=== PATIENT | female | born 1930 | race Caucasian/White ===

== ENCOUNTER 2017-08-07 05:59 | Day surgery (SDC) | payer MEDICARE, OTHER ==
[~2017-08-07 05:59] MED LIST: Lidocaine 1%/Sod Bicarbonate in NS 8.4% 1 ML Syringe IV PRN; Sodium Chloride 0.9% 10 ML Syringe FLUSH PRN
[2017-08-07] MEDS ORDERED: Bupivacaine 0.25% 30 ML SDV ONE (06:31)
[2017-08-07] MEDS ORDERED: HYDROmorphone 0.5 MG/0.5 ML Syringe IVPUSH PRN (06:37)
[2017-08-07] MEDS ORDERED: Sennosides 8.6 MG Tab PO PRN (06:37)
[2017-08-07] MEDS ORDERED: Bisacodyl 5 MG Tab PO PRN (06:37)
[2017-08-07] MEDS ORDERED: Magnesium Hydroxide 400 MG/5 ML Susp 30 ML Cup PO PRN (06:37)
[2017-08-07] MEDS ORDERED: Ondansetron 4 MG/2 ML SDV IVPUSH PRN (06:37)
[2017-08-07] MEDS ORDERED: Naloxone 0.4 MG/ML SDV IVPUSH PRN (06:37)
--- NOTE | 2017-08-07 06:58 | PCM.PREANE ---
Preanesthetic Assessment - Anesthesia/Transfusion/Family Hx Anesthesia History: Prior Anesthesia Reaction (nausea) Family History of Anesthesia Reaction: No Transfusion History: No Prior Transfusion(s) - Review of Systems General: No Symptoms Pulmonary: No Symptoms Cardiovascular: No Symptoms Gastrointestinal: No Symptoms Neurological: No Symptoms Other: Reports: Easy Bleeding, Easy Bruising - Physical Assessment NPO Status Date: 08/06/17 NPO Status Time: 00:00 Pulse: 69 O2 Sat by Pulse Oximetry: 98 Respiratory Rate: 16 Blood Pressure: 159/73 Temperature: 36.6 C Height: 1.65 m Weight: 57.1 kg ASA Class: 2 Mental Status: Alert & Oriented x3 Airway Class: Mallampati = 1 Dentition: Reports: Partial Thyro-Mental Finger Breadths: 3 Mouth Opening Finger Breadths: 3 ROM/Head Extension: Full Lungs: Clear to Auscultation, Normal Respiratory Effort Cardiovascular: Regular Rate, Regular Rhythm - Imaging/EKG Impressions: NSR no ischemia PVC's probable LVH - Allergies Allergies/Adverse Reactions: Allergies Allergy/AdvReac Type Severity Reaction Status Date / Time adhesive Allergy Cannot Verified 08/04/17 14:03 Remember atorvastatin Allergy Cannot Verified 08/04/17 14:03 Remember codeine Allergy Rash Verified 08/04/17 14:03 cyclobenzaprine Allergy Confusion Verified 08/04/17 14:03 [From Flexeril] morphine Allergy Cannot Verified 08/04/17 14:03 Remember risedronate sodium Allergy Cannot Verified 08/04/17 14:03 [From Actonel] Remember - Anesthesia Plan Pre-Op Medication Ordered: None - Acknowledgements Anesthesia Type Planned: Spinal Pt an Appropriate Candidate for the Planned Anesthesia: Yes Alternatives and Risks of Anesthesia Discussed w Pt/Guardian: Yes Pt/Guardian Understands and Agrees with Anesthesia Plan: Yes PreAnesthesia Questionnaire HEENT History: Reports: Allergic Rhinitis, Impaired Vision, Other (See Below) Other HEENT History: TMJ, wears glasses, has lower partial Cardiovascular History: Reports: High Cholesterol, Hypertension, Other (See Below) Other Cardiovascular History: varicose veins Respiratory History: Reports: None Gastrointestinal History: Reports: GERD, Hemorrhoids, Other (See Below) Other Gastrointestinal History: elevated LFTs, small bowel obstruction Genitourinary History: Reports: Other (See Below) Other Genitourinary History: left renal cyst 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 OB/BYN History: mastectomy Musculoskeletal History: Reports: Osteoarthritis, Osteoporosis Other Musculoskeletal History: menscus tear right knee Neurological History: Reports: None Psychiatric History: Reports: Depression Endocrine/Metabolic History: Reports: None Hematologic History: Reports: None Oncologic (Cancer) History: Reports: Breast Dermatologic History: Reports: None - Infectious Disease History Infectious Disease History: Reports: Chicken Pox, Measles, Mumps, Shingles - Past Surgical History HEENT Surgical History: Reports: Tonsillectomy Cardiovascular Surgical History: Reports: None Respiratory Surgical History: Reports: None GI Surgical History: Reports: Cholecystectomy, Colonoscopy Female Surgical History: Reports: Hysterectomy, Oophorectomy Male Surgical History: Reports: None Endocrine Surgical History: Reports: None Neurological Surgical History: Reports: None Musculoskeletal Surgical History: Reports: Knee Replacement, Other (See Below) Other Musculoskeletal Surgeries/Procedures:: right total knee replacement Oncologic Surgical History: Reports: Mastectomy Other Oncologic Surgeries/Procedures: Right 1996 Dermatological Surgical History: Reports: None - SUBSTANCE USE Smoking Status *Q: Former Smoker Tobacco Use Within Last Twelve Months: Cigarettes Second Hand Smoke Exposure: No Recreational Drug Use History: No - HOME MEDS Home Medications: Home Meds Aspirin [Halfprin] 81 mg PO DAILY 03/29/15 [History] Lisinopril 40 mg PO DAILY 03/29/15 [History] Triamterene/Hydrochlorothiazid [Triamterene-HCTZ 37.5-25 MG] 1 tab PO DAILY 01/05 [History] Fluticasone Propionate [Flonase] 1 spray NASBOTH BID PRN 08/05/16 [History] Acetaminophen [Tylenol] 650 mg PO Q6H PRN 08/04/17 [History] Denosumab [Prolia] 1 dose SQ ASDIRECTED 08/04/17 [History] Diclofenac Sodium [Voltaren] 1 applic TOP QID 08/04/17 [History] Escitalopram [Lexapro] 5 mg PO DAILY 08/04/17 [History] Tobramycin/Lotepred Etab [Zylet Eye Drops] 1 drop EYEBOTH QID 08/04/17 [History] - CURRENT (IN HOUSE) MEDS Current Meds: Current Medications Aspirin (Ecotrin) 325 mg PO BID STEPHANY Bisacodyl (Dulcolax) 5 mg PO DAILY PRN PRN Reason: Constipation Morphine Sulfate 8 mg/Epinephrine HCl 0.3 mg/Cefuroxime Sodium 750 mg/Ketorolac Tromethamine 30 mg/Sodium Chloride 27.9 ml 0 mg .XX ONETIME ONE Stop: 08/07/17 06:37 Docusate Sodium (Colace) 100 mg PO BID [facility] Famotidine (Pepcid) 20 mg PO Q12H [facility] Hydromorphone HCl (Dilaudid) 0.2 mg IVPUSH Q2H PRN PRN Reason: Breakthrough Pain Lactated Ringer's (Ringers, Lactated) 1,000 mls @ 125 mls/hr IV ASDIRECTED STEPHANY Cefazolin Sodium/Dextrose 2 gm (/ Premix) 50 mls @ 100 mls/hr IV Q8H [facility] Stop: 08/07/17 23:14 Ketorolac Tromethamine (Toradol) 15 mg IVPUSH Q6H PRN PRN Reason: Pain Lidocaine/Sodium Bicarbonate (Buffered Lidocaine 1% In Ns 8.4%) 0.25 ml IV ONETIME PRN PRN Reason: Prior to IV Start Magnesium Hydroxide (Milk Of Magnesia) 30 ml PO BID PRN PRN Reason: Constipation Naloxone HCl (Narcan) 0.1 mg IVPUSH Q5M PRN PRN Reason: Oversedation Ondansetron HCl (Zofran) 4 mg IVPUSH Q6H PRN PRN Reason: Nausea/Vomiting Senna (Senna) 8.6 mg PO BID PRN PRN Reason: Constipation Sodium Chloride (Saline Flush) 10 ml FLUSH ASDIRECTED PRN PRN Reason: Keep Vein Open Tramadol HCl (Ultram) 50 - 100 mg PO Q4H PRN PRN Reason: Pain Discontinued Medications Bupivacaine HCl (Marcaine 0.25%) Confirm Administered Dose 30 ml .ROUTE .STK- MED ONE Stop: 08/07/17 06:32 Bupivacaine HCl/Epinephrine Bitart (Marcaine 0.25%/Epinephrine 1:200,000) Confirm Administered Dose 30 ml .ROUTE .STK-MED ONE Stop: 08/07/17 06:31 Cefazolin Sodium (Ancef) Confirm Administered Dose 2 gm .ROUTE .STK-MED ONE Stop: 08/07/17 06:31 Iodine (Iodine 2% Mild Tincture) Confirm Administered Dose 30 ml .ROUTE .STK- MED ONE Stop: 08/07/17 06:31 Tranexamic Acid (Cyklokapron) Confirm Administered Dose 1,000 mg .ROUTE .STK- MED ONE Stop: 08/07/17 06:31 Vancomycin HCl (Vancomycin) Confirm Administered Dose 1 gm .ROUTE .STK-MED ONE Stop: 08/07/17 06:31
[2017-08-07] MEDS: Lactated Ringers 1,000 ML IV SCH ×2 (07:05→10:47)
[2017-08-07] MEDS ORDERED: Lidocaine 1%/Sod Bicarbonate in NS 8.4% 1 ML Syringe PRN (07:08)
[2017-08-07] MEDS ORDERED: Propofol 200 MG/20 ML SDV ONE ×2 (07:16→08:03)
[2017-08-07] MEDS ORDERED: fentaNYL 100 MCG/2 ML SDV ONE (07:17)
[2017-08-07] MEDS ORDERED: ceFAZolin 1 GM Vial ONE (07:17)
[2017-08-07] MEDS ORDERED: Scopolamine 1 MG Transdermal Patch TRDERM SCH (07:30)
[2017-08-07] MEDS ORDERED: Lactated Ringers 1,000 ML ONE (07:50)
[2017-08-07] MEDS ORDERED: diphenhydrAMINE 50 MG/ML SDV ONE (07:51)
[2017-08-07] MEDS ORDERED: Dexamethasone 4 MG/ML 5 ML MDV ONE (07:51)
[2017-08-07] MEDS: Iodine/Sodium Iodide 2% Tincture 30 ML Bottle ONE ×2 (08:06→08:27)
[2017-08-07] MEDS: ceFAZolin 1 GM Vial ONE ×2 (08:07→08:30)
[2017-08-07] MEDS: Bupivacaine 0.25%/EPINEPHrine 1:200,000 30 ML SDV ONE ×2 (08:09→08:35)
[2017-08-07] MEDS: Morphine 8 MG, EPINEPHrine 0.3 MG, Cefuroxime 750 MG, Ketorolac 30 MG, Sodium Chloride ... ONE ×10 (08:09→08:34)
[2017-08-07] MEDS: Vancomycin 1 GM SDV ONE ×2 (08:10→08:36)
[2017-08-07] MEDS ORDERED: Ketorolac 30 MG/ML SDV IVPUSH PRN (09:26)
[2017-08-07] MEDS ORDERED: EPINEPHrine 1 MG/ML SDV ONE (09:30)
[2017-08-07] MEDS ORDERED: Ropivacaine 0.5% 5 MG/ML 30 ML SDV ONE (09:30)
--- NOTE | 2017-08-07 09:30 | PCM.POSTAN ---
POST ANESTHESIA ASSESSMENT - MENTAL STATUS Mental Status: Alert, Oriented - VITAL SIGNS Pulse Rate: 96 SaO2: 100 Resp Rate: 18 Blood Pressure: 154/85 Temperature: 98.7 C - RESPIRATORY Respiratory Status: Respiratory Rate WNL, Airway Patent, O2 Saturation Stable, Supplemental Oxygen - CARDIOVASCULAR CV Status: Pulse Rate WNL, Blood Pressure Stable - GASTROINTESTINAL GI Status: No Symptoms - PAIN Pain Score: 5 - POST OP HYDRATION Hydration Status: Adequate & Stable - OBSERVATIONS Free Text/Narrative:: no anesthesia complications noted
[2017-08-07] MEDS: fentaNYL 100 MCG/2 ML SDV IVPUSH PRN ×2 (09:38→09:46)
--- NOTE | 2017-08-07 09:52 | CR ---
Left knee: AP and lateral views of the left knee were obtained. Comparison: No prior left knee exam. Knee prosthesis is seen. Components are aligned. Underlying bony structures are intact. Soft tissue air is noted from the surgical procedure. Impression: 1. Satisfactory radiographic appearance of recently placed left knee prosthesis. Diagnostic code #2
[2017-08-07] MEDS ORDERED: Famotidine 20 MG/2 ML SDV IVPUSH ONE (10:18)
[2017-08-07] MEDS ORDERED: LORazepam 2 MG/ML MDV IVPUSH ONE (10:19)
--- NOTE | 2017-08-07 13:51 | PCM.SN ---
- Free Text/Narrative Note: Left selective femoral nerve block at the adductor canal for post-procedure pain control Start: 954 Time out: 955 End: 1003 Chart reviewed. Consent signed. Questions answered. Appropriate monitors applied. Time out performed. Left mid-shaft femur evaluated with ultrasound. Scanning medially femur, I was able to identify the femoral artery in the adductor canal. The saphenous nerve was lateral to the artery. The skin was prepped lateral to the ultrasound probe with chlorahexadine. Skin localized with 3mL of 1% lidocaine. The 21ga 4 insulated block needle was inserted under direct ultrasound guidance into the adductor canal. 20mL of 0.5% ropivacaine with 1:200,000 epinephrine was injected cirmcumferentially about the nerve with intermittent negative aspiration. Patient tolerated the procedure well. See pictures on progress note and vital signs on nurses notes. Block completed postoperatively in recovery. Nic Courtney CRNA v
[2017-08-07] MEDS: Ketorolac 15 MG/ML SDV IVPUSH PRN ×2 (15:33→21:33)
[2017-08-07] MEDS: ceFAZolin 2 GM in Premix Bag 1 BAG IV SCH ×2 (15:34→23:07)
--- NOTE | 2017-08-07 18:29 | PCM.CONS ---
H&P History of Present Illness - General Date of Service: 08/07/17 Admit Problem/Dx: Admission Diagnosis/Problem Admission Diagnosis/Problem Osteoarthritis of knee Source of Information: Patient, Old Records, Provider, RN, RN Notes Reviewed, Other (Surgical notes ) - History of Present Illness Initial Comments - Free Text/Narative: Liberty Chatman is an 86 yo female patient of Dr. Pedroza who is post-operative day 0 of left TKA. Hospital medicine was consulted for post-operative medical care. At this time she is resting comfortably in bed. Pain is controlled and rated 2/10. She any chest pain, shortness of breath, palpitations, nausea, or vomiting, but she does say she has had some "heartburn" that comes and goes. She carries a history of: HLD, HTN, GERD, elevated LFTs, OA, Osteoperosis, Depression. She is a former smoker. She is a full code. Her primary care provider is GERRI Schulz here at [facility]. Left Knee Pain Score (Numeric/FACES): 0 - Related Data Allergies/Adverse Reactions: Allergies Allergy/AdvReac Type Severity Reaction Status Date / Time adhesive Allergy Cannot Verified 08/04/17 14:03 Remember atorvastatin Allergy Cannot Verified 08/04/17 14:03 Remember codeine Allergy Rash Verified 08/04/17 14:03 risedronate sodium Allergy Cannot Verified 08/04/17 14:03 [From Actonel] Remember cyclobenzaprine AdvReac Confusion Verified 08/07/17 07:05 [From Flexeril] morphine AdvReac Nausea Verified 08/07/17 07:06 Home Medications: Home Meds Aspirin [Halfprin] 81 mg PO DAILY 03/29/15 [History] Lisinopril 40 mg PO DAILY 03/29/15 [History] Triamterene/Hydrochlorothiazid [Triamterene-HCTZ 37.5-25 MG] 1 tab PO DAILY 01/05 [History] Fluticasone Propionate [Flonase] 1 spray NASBOTH BID PRN 08/05/16 [History] Acetaminophen [Tylenol] 650 mg PO Q6H PRN 08/04/17 [History] Denosumab [Prolia] 1 dose SQ ASDIRECTED 08/04/17 [History] Diclofenac Sodium [Voltaren] 1 applic TOP QID 08/04/17 [History] Escitalopram [Lexapro] 5 mg PO DAILY 08/04/17 [History] Tobramycin/Lotepred Etab [Zylet Eye Drops] 1 drop EYEBOTH QID 08/04/17 [History] Past Medical History HEENT History: Reports: Allergic Rhinitis, Impaired Vision, Other (See Below) Other HEENT History: TMJ, wears glasses, has lower partial Cardiovascular History: Reports: High Cholesterol, Hypertension, Other (See Below) Other Cardiovascular History: varicose veins Respiratory History: Reports: None Gastrointestinal History: Reports: GERD, Hemorrhoids, Other (See Below) Other Gastrointestinal History: elevated LFTs, small bowel obstruction Genitourinary History: Reports: Other (See Below) Other Genitourinary History: left renal cyst 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 OB/BYN History: mastectomy Musculoskeletal History: Reports: Osteoarthritis, Osteoporosis Other Musculoskeletal History: menscus tear right knee Neurological History: Reports: None Psychiatric History: Reports: Depression Endocrine/Metabolic History: Reports: None Hematologic History: Reports: None Oncologic (Cancer) History: Reports: Breast Dermatologic History: Reports: None - Infectious Disease History Infectious Disease History: Reports: Chicken Pox, Measles, Mumps, Shingles - Past Surgical History HEENT Surgical History: Reports: Tonsillectomy Cardiovascular Surgical History: Reports: None Respiratory Surgical History: Reports: None GI Surgical History: Reports: Cholecystectomy, Colonoscopy Female Surgical History: Reports: Hysterectomy, Oophorectomy Male Surgical History: Reports: None Endocrine Surgical History: Reports: None Neurological Surgical History: Reports: None Musculoskeletal Surgical History: Reports: Knee Replacement, Other (See Below) Other Musculoskeletal Surgeries/Procedures:: right total knee replacement Oncologic Surgical History: Reports: Mastectomy Other Oncologic Surgeries/Procedures: Right 1996 Dermatological Surgical History: Reports: None Social & Family History - Family History Cardiac: Reports: Heart Failure, High Cholesterol, Hypertension OBGYN: Reports: Musculoskeletal: Reports: Osteoarthritis Neurological: Reports: CVA Other Neurological Family History: dad Endocrine/Metabolic: Reports: Diabetes, type II Other Endocrine/Metabolic Family History: mom Oncologic: Reports: Breast - Tobacco Use Smoking Status *Q: Former Smoker Years of Tobacco use: 9 Packs/Tins Daily: 0.2 Used Tobacco, but Quit: Yes Month Tobacco Last Used: 07/1959 Second Hand Smoke Exposure: No - Caffeine Use Caffeine Use: Reports: Coffee, Tea Other Caffeine Use: few cups a day - Recreational Drug Use Recreational Drug Use: No H&P Review of Systems - Review of Systems: Review Of Systems: See Below General: Reports: No Symptoms. Denies: Fever, Chills, Malaise, Weakness, Fatigue HEENT: Reports: No Symptoms. Denies: Ear Pain, Eye Pain, Sinus Congestion, Sore Throat Pulmonary: Reports: No Symptoms. Denies: Shortness of Breath, Wheezing, Pleuritic Chest Pain, Cough, Sputum Cardiovascular: Reports: No Symptoms. Denies: Chest Pain, Palpitations, Dyspnea on Exertion Gastrointestinal: Reports: No Symptoms, Other ("Heartburn" that comes and goes ) . Denies: Abdominal Pain, Constipation, Diarrhea, Hematemesis, Hematochezia, Melena, Nausea, Vomiting Genitourinary: Reports: No Symptoms. Denies: Dysuria, Frequency, Burning, Pain , Urgency Musculoskeletal: Reports: Joint Pain (Left knee ) Skin: Reports: No Symptoms Psychiatric: Reports: No Symptoms Neurological: Reports: No Symptoms Hematologic/Lymphatic: Reports: No Symptoms Immunologic: Reports: No Symptoms Exam - Exam Exam: See Below - Vital Signs Vital Signs: Last Vital Signs Temp 97.9 F 08/07/17 15:59 Pulse 32 L 08/07/17 15:59 Resp 14 08/07/17 15:59 BP 129/77 08/07/17 15:59 Pulse Ox 95 08/07/17 15:59 Weight: 125 lb 14.143 oz - Exam Quality Assessment: DVT Prophylaxis General: Alert, Oriented, Cooperative, Other (occasionaly very mild confusion). No: Mild Distress HEENT: PERRLA, Hearing Intact, Mucosa Moist & [place], Nares Patent, Normal Nasal Septum, Posterior Pharynx Clear, Conjunctiva Clear, EOMI, EACs Clear, TMs Clear Neck: Supple, Trachea Midline. No: JVD, Thyromegaly Lungs: Clear to Auscultation, Normal Respiratory Effort Cardiovascular: Regular Rate, Irregular Rhythm GI/Abdominal Exam: Normal Bowel Sounds, Soft, Non-Tender, No Organomegaly, No Distention, No Abnormal Bruit, No Mass, Pelvis Stable (Female) Exam: Deferred Rectal (Female) Exam: Deferred Back Exam: Normal Inspection, Full Range of Motion Extremities: No Pedal Edema, Normal Capillary Refill, Leg Pain, Other (Dagoberto bandage on left leg. Bandage is dry and intact. Cooling pack in place ) Peripheral Pulses: 2+: Radial (L), Radial (R), Posterior Tibial (L), Posterior Tibial (R), Dorsalis Pedis (L), Dorsalis Pedis (R) Skin: Warm, Dry, Intact Neurological: Cranial Nerves Intact (grossly) Neuro Extensive - Mental Status: Alert, Oriented x3, Normal Mood/Affect, Other ( Some very mild confusion noted ) Neuro Extensive - Motor, Sensory, Reflexes: CN II-XII Intact (grossly ), Abnormal Gait Psychiatric: Alert, Normal Affect, Normal Mood Consult PN Assessment/Plan POD#: 0 Procedures: Procedures ASSAY OF FERRITIN (07/25/16) ASSAY OF PREALBUMIN (07/31/17) ASSAY OF SERUM ALBUMIN (07/25/16) ASSAY THYROID STIM HORMONE (11/30/15) CHEST X-RAY 2VW FRONTAL&LATL (12/25/15) COMPLETE CBC AUTOMATED (11/30/15) COMPLETE CBC W/AUTO DIFF WBC (07/31/17) COMPREHEN METABOLIC PANEL (07/31/17) CULTURE SCREEN ONLY (12/25/15) ECHO EXAM OF ABDOMEN (08/08/16) EMERGENCY DEPT VISIT (03/29/15) GAIT TRAINING THERAPY (08/08/16) LIPID PANEL (11/30/15) METABOLIC PANEL TOTAL CA (07/25/16) MR-STAPH DNA AMP PROBE (07/26/17) OFFICE/OUTPATIENT VISIT EST (05/30/16) OT EVAL LOW COMPLEX 30 MIN (08/08/16) PROTHROMBIN TIME (07/31/17) PT EVAL LOW COMPLEX 20 MIN (08/08/16) ROUTINE VENIPUNCTURE (07/31/17) SELF CARE MNGMENT TRAINING (08/08/16) STREP A AG IA (12/25/15) THERAPEUTIC ACTIVITIES (08/08/16) THERAPEUTIC EXERCISES (08/08/16) THROMBOPLASTIN TIME PARTIAL (07/31/17) TTE W/DOPPLER COMPLETE (08/03/17) UPR/LXTR ART STDY 3+ LVLS (01/09/17) URINALYSIS AUTO W/SCOPE (08/08/16) VITAMIN D 25 HYDROXY (07/25/16) X-RAY EXAM CHEST 2 VIEWS (07/31/17) X-RAY EXAM OF KNEE 1 OR 2 (08/08/16) (1) S/P total knee arthroplasty SNOMED Code(s): 6455660842076, 1580304625442 Code(s): Z96.659 - PRESENCE OF UNSPECIFIED ARTIFICIAL KNEE JOINT Priority: High Current Visit: Yes Qualifiers: Laterality: left Qualified Code(s): Z96.652 - Presence of left artificial knee joint (2) Osteoarthritis SNOMED Code(s): 399832401 Code(s): M19.90 - UNSPECIFIED OSTEOARTHRITIS, UNSPECIFIED SITE Priority: High Current Visit: Yes Qualifiers: Osteoarthritis location: knee Osteoarthritis type: primary Laterality: left Qualified Code(s): M17.12 - Unilateral primary osteoarthritis, left knee (3) HLD (hyperlipidemia) SNOMED Code(s): 95269729 Code(s): E78.5 - HYPERLIPIDEMIA, UNSPECIFIED Priority: Low Current Visit : No Qualifiers: Hyperlipidemia type: unspecified Qualified Code(s): E78.5 - Hyperlipidemia , unspecified (4) HTN (hypertension) SNOMED Code(s): 55665061 Code(s): I10 - ESSENTIAL (PRIMARY) HYPERTENSION Priority: Low Current Visit: No Qualifiers: Hypertension type: unspecified Qualified Code(s): I10 - Essential (primary ) hypertension (5) Age related osteoporosis SNOMED Code(s): 702967637 Code(s): M81.0 - AGE-RELATED OSTEOPOROSIS W/O CURRENT PATHOLOGICAL FRACTURE Priority: Low Current Visit: No Qualifiers: Presence of current pathological fracture: unspecified Qualified Code(s): M81.0 - Age-related osteoporosis without current pathological fracture (6) Depression SNOMED Code(s): 29347162 Code(s): F32.9 - MAJOR DEPRESSIVE DISORDER, SINGLE EPISODE, UNSPECIFIED Priority: Low Current Visit: No Qualifiers: Depression Type: other depression Qualified Code(s): F32.89 - Other specified depressive episodes (7) Transaminitis SNOMED Code(s): 575820835 Code(s): R74.0 - NONSPEC ELEV OF LEVELS OF TRANSAMNS & LACTIC ACID DEHYDRGNSE Priority: Low Current Visit: No (8) GERD (gastroesophageal reflux disease) SNOMED Code(s): 989350652 Code(s): K21.9 - GASTRO-ESOPHAGEAL REFLUX DISEASE WITHOUT ESOPHAGITIS Priority: Medium Current Visit: No Qualifiers: Esophagitis presence: esophagitis presence not specified Qualified Code(s) : K21.9 - Gastro-esophageal reflux disease without esophagitis (9) Hx of breast cancer SNOMED Code(s): 798236924 Code(s): Z85.3 - PERSONAL HISTORY OF MALIGNANT NEOPLASM OF BREAST Priority : Medium Current Visit: No (10) Arrhythmia SNOMED Code(s): 052184894 Code(s): I49.9 - CARDIAC ARRHYTHMIA, UNSPECIFIED Priority: High Current Visit: Yes Qualifiers: Arrhythmia type: other cardiac arrhythmia Qualified Code(s): I49.8 - Other specified cardiac arrhythmias Problem List Initiated/Reviewed/Updated: Yes My Orders Last 24 Hours: My Active Orders 08/07/17 18:03 EKG 12 Lead [EKG Documentation Completion] [RC] STAT 08/07/17 18:04 Cardiac Monitoring [RC] . DIRECTED 08/07/17 18:20 CKMB [CHEM] Routine TROPONIN I [CHEM] Routine Plan: I/P: Acute: S/P left total knee arthroplasty - post-operative day 0 -DVT prophylaxis and pain management per primary care team -PT/OT -IS/RT -Monitor oxygen saturation -Titrate oxygen as needed -Vital signs stable -Monitor labs -Pre-operative Hgb was 14.5 Osteoarthritis of left knee -Pain management per primary care team Arrhythmia -Irregular rhythm noted on physical exam -Was having CP post-operatively and 12-lead obtained then - NSR -12-lead EKG shows sinus rhythm with supraventricular bigeminy -Troponin and CKMB negative -Negative chest pain/SOB however she has had some "Heartburn" that comes and goes. Hx/o GERD -Previous 12-leads on 12/25/15 notes a-fib and 07/31/17 shows sinus rhythm with PVC, probable LVH -Echo obtained 08/03/17 shows EF of 60-65% with no LVH. Defer to full report. -F/U with PCP Chronic: Depression GERD -pepcid ordered HTN - home meds osteoperosis HLD hx/o breast cancer transaminitis Plan: CM for discharge planning GI prophylaxis Home medications as indicated Other orders as listed above Routine AM labs She is a full code. Her PCP is GERRI Schulz, here at the [facility]. Thank you for allowing us to participate in the care of this patient!! Total time spent with patient 80 minutes Requesting Provider: Dr. Pedroza Date Consult Requested: 08/07/17 Reason for Consult: Post-operative medical management Patient History Reviewed: Yes Admission H&P Reviewed: Yes Time Spent (in minutes): 80
[2017-08-07] MEDS: Meperidine PF 50 MG/ML Syringe IVPUSH SCH (20:13)
[2017-08-07] MEDS: Famotidine 20 MG Tab PO SCH (20:52)
[2017-08-07] MEDS: Docusate Sodium 100 MG Cap PO SCH (20:52)
[2017-08-08] MEDS: Ketorolac 15 MG/ML SDV IVPUSH PRN (04:20)
[2017-08-08] MEDS: TRAMADOL 50 MG PO PRN ×3 (06:31→14:30)
[2017-08-08] MEDS: ceFAZolin 2 GM in Premix Bag 1 BAG IV SCH (07:00)
[2017-08-08 07:41] VITALS: BP 140/84
--- NOTE | 2017-08-08 08:01 | PCM.CONSN ---
- General Info Date of Service: 08/08/17 Admission Dx/Problem (Free Text): Admission Diagnosis/Problem Admission Diagnosis/Problem Osteoarthritis of knee POD #[address] Pedroza. Pain controlled, nausea improved to resolved. VSS on RA Hgb 11.1 LFT's are elevated with AST/ALT in the 300's, bili and AP are WNL. Patient has hx of elevated LFT's. Doing well. Functional Status: Reports: Pain Controlled, Tolerating Diet, Ambulating, Urinating, Incentive Spirometry - Review of Systems General: Reports: No Symptoms HEENT: Reports: No Symptoms Pulmonary: Reports: No Symptoms Cardiovascular: Reports: No Symptoms Gastrointestinal: Reports: No Symptoms. Denies: Abdominal Pain, Diarrhea, Nausea, Vomiting Genitourinary: Reports: No Symptoms Musculoskeletal: Reports: Leg Pain Skin: Reports: No Symptoms Neurological: Reports: No Symptoms Psychiatric: Reports: No Symptoms - Patient Data Vitals - Most Recent: Last Vital Signs Temp 98.2 F 08/08/17 07:26 Pulse 67 08/08/17 07:26 Resp 14 08/08/17 07:26 BP 140/84 08/08/17 07:26 Pulse Ox 92 L 08/08/17 07:26 Weight - Most Recent: 125 lb 14.143 oz I&O - Last 24 Hours: Intake & Output 08/07/17 08/08/17 08/08/17 22:59 06:59 14:59 Intake Total 120 Output Total 400 200 Balance -280 -200 Lab Results Last 24 Hours: Laboratory Results - last 24 hr 08/07/17 08/08/17 08/08/17 Range/Units 18:20 06:30 06:30 WBC 4.92 (3.98-10.04) K/mm3 RBC 3.92 L (3.98-5.22) M/mm3 Hgb 11.1 L (11.2-15.7) gm/L Hct 33.5 L (34.1-44.9) % MCV 85.5 (79.4-94.8) fl MCH 28.3 (25.6-32.2) pg MCHC 33.1 (32.2-35.5) g/dl RDW Std Deviation 40.7 (36.4-46.3) fL Plt Count 161 L (182-369) K/mm3 MPV 11.3 (9.4-12.3) fl Sodium 141 (136-145) mEq/L Potassium 3.7 (3.5-5.1) mEq/L Chloride 106 (98-107) mEq/L Carbon Dioxide 27 (21-32) mEq/L Anion Gap 11.7 (5-15) BUN 16 (7-18) mg/dL Creatinine 0.9 (0.55-1.02) mg/dL Est Cr Clr Drug Dosing 41.87 mL/min Estimated GFR (MDRD) 60 (>60) mL/min BUN/Creatinine Ratio 17.8 (14-18) Glucose 97 (83-115) mg/dL Calcium 8.1 L (8.5-10.1) mg/dL Total Bilirubin 0.7 (0.2-1.0) mg/dL AST 338 H (15-37) U/L ALT 389 H (14-59) U/L Alkaline Phosphatase 83 (46-116) U/L CK-MB (CK-2) 1.1 (0-3.6) ng/ml Troponin I < 0.017 (0.00-0.056) ng/mL Total Protein 5.5 L (6.4-8.2) g/dl Albumin 2.9 L (3.4-5.0) g/dl Globulin 2.6 gm/dL Albumin/Globulin Ratio 1.1 (1-2) Med Orders - Current: Current Medications Aspirin (Ecotrin) 325 mg PO BID [facility] Aspirin (Halfprin) 81 mg PO DAILY [facility] Bisacodyl (Dulcolax) 5 mg PO DAILY PRN PRN Reason: Constipation Docusate Sodium (Colace) 100 mg PO BID [facility] Last Admin: 08/07/17 20:52 Dose: 100 mg Famotidine (Pepcid) 20 mg PO BID [facility] Last Admin: 08/07/17 20:52 Dose: 20 mg Hydromorphone HCl (Dilaudid) 0.2 mg IVPUSH Q2H PRN PRN Reason: Breakthrough Pain Magnesium Hydroxide (Milk Of Magnesia) 30 ml PO BID PRN PRN Reason: Constipation Naloxone HCl (Narcan) 0.1 mg IVPUSH Q5M PRN PRN Reason: Oversedation Non-Formulary Medication (Tobramycin/Lotepred Etab [Zylet Eye Drops]) 1 drop EYEBOTH QID [facility] Ondansetron HCl (Zofran) 4 mg IVPUSH Q6H PRN PRN Reason: Nausea/Vomiting Lisinopril 40mg Tablet (Patients Own Med) 1 each PO DAILY [facility] Triamterene W/Hydrochlorothiazide 37.5mg/25mg 1 each PO DAILY [facility] Escitalopram 5mg Tablet (Patient's Own Med) 1 each PO DAILY [facility] Scopolamine (Scopolamine) 1 each TRDERM ONETIME [facility] Last Admin: 08/07/17 07:30 Dose: 1 each Senna (Senna) 8.6 mg PO BID PRN PRN Reason: Constipation Tramadol HCl (Ultram) 50 - 100 mg PO Q4H PRN PRN Reason: Pain Last Admin: 08/08/17 06:31 Dose: 100 mg Discontinued Medications Bupivacaine HCl (Marcaine 0.25%) Confirm Administered Dose 30 ml .ROUTE .STK- MED ONE Stop: 08/07/17 06:32 Bupivacaine HCl/Epinephrine Bitart (Marcaine 0.25%/Epinephrine 1:200,000) Confirm Administered Dose 30 ml .ROUTE .STK-MED ONE Stop: 08/07/17 06:31 Last Admin: 08/07/17 08:35 Dose: 30 ml Cefazolin Sodium (Ancef) Confirm Administered Dose 2 gm .ROUTE .STK-MED ONE Stop: 08/07/17 06:31 Last Admin: 08/07/17 08:30 Dose: 2 gm Cefazolin Sodium (Ancef) Confirm Administered Dose 2 gm .ROUTE .STK-MED ONE Stop: 08/07/17 07:18 Citalopram Hydrobromide (Celexa) 10 mg PO DAILY [facility] Morphine Sulfate 8 mg/Epinephrine HCl 0.3 mg/Cefuroxime Sodium 750 mg/Ketorolac Tromethamine 30 mg/Sodium Chloride 27.9 ml 0 mg .XX ONETIME ONE Stop: 08/07/17 07:31 Last Admin: 08/07/17 08:34 Dose: 788.3 mg Dexamethasone (Dexamethasone) Confirm Administered Dose 20 mg .ROUTE .STK-MED ONE Stop: 08/07/17 07:52 Diphenhydramine HCl (Benadryl) Confirm Administered Dose 50 mg .ROUTE .STK-MED ONE Stop: 08/07/17 07:52 Epinephrine HCl (Adrenalin) Confirm Administered Dose 1 mg .ROUTE .STK-MED ONE Stop: 08/07/17 09:31 Famotidine (Pepcid) 20 mg IVPUSH ONETIME ONE Stop: 08/07/17 10:19 Last Admin: 08/07/17 10:36 Dose: 20 mg Fentanyl (Sublimaze) Confirm Administered Dose 100 mcg .ROUTE .STK-MED ONE Stop: 08/07/17 07:18 Fentanyl (Sublimaze) 50 mcg IVPUSH Q5M PRN PRN Reason: PAIN Stop: 08/07/17 12:00 Last Admin: 08/07/17 09:46 Dose: 50 mcg Lactated Ringer's (Ringers, Lactated) 1,000 mls @ 125 mls/hr IV ASDIRECTED [facility] Stop: 08/07/17 23:00 Last Admin: 08/07/17 10:47 Dose: 125 mls/hr Cefazolin Sodium/Dextrose 2 gm (/ Premix) 50 mls @ 100 mls/hr IV Q8H [facility] Stop: 08/08/17 07:29 Last Admin: 08/08/17 07:00 Dose: 100 mls/hr Lactated Ringer's (Ringers, Lactated) Confirm Administered Dose 1,000 mls @ as directed .ROUTE .STK-MED ONE Stop: 08/07/17 07:51 Iodine (Iodine 2% Mild Tincture) Confirm Administered Dose 30 ml .ROUTE .STK- MED ONE Stop: 08/07/17 06:31 Last Admin: 08/07/17 08:27 Dose: 18 ml Ketorolac Tromethamine (Toradol) 15 mg IVPUSH Q6H PRN PRN Reason: Pain Last Admin: 08/08/17 04:20 Dose: 15 mg Ketorolac Tromethamine (Toradol) 30 mg IVPUSH ONETIME PRN PRN Reason: Pain Stop: 08/07/17 12:00 Last Admin: 08/07/17 09:43 Dose: 30 mg Lidocaine/Sodium Bicarbonate (Buffered Lidocaine 1% In Ns 8.4%) 0.25 ml IV ONETIME PRN PRN Reason: Prior to IV Start Lidocaine/Sodium Bicarbonate (Buffered Lidocaine 1% In Ns 8.4%) 0.25 ml .XX ONETIME PRN PRN Reason: Prior to IV Start Stop: 08/07/17 12:00 Last Admin: 08/07/17 07:05 Dose: 0.25 ml Lorazepam (Ativan) 0.5 mg IVPUSH ONETIME ONE Stop: 08/07/17 10:20 Last Admin: 08/07/17 10:29 Dose: 0.5 mg Meperidine HCl (Demerol) 12.5 mg IVPUSH Q15M [facility] Stop: 08/07/17 09:46 Last Admin: 08/07/17 20:13 Dose: Not Given Propofol (Diprivan 20 Ml) Confirm Administered Dose 200 mg .ROUTE .STK-MED ONE Stop: 08/07/17 07:17 Propofol (Diprivan 20 Ml) Confirm Administered Dose 200 mg .ROUTE .STK-MED ONE Stop: 08/07/17 08:04 Ropivacaine (Naropin 0.5%) Confirm Administered Dose 30 ml .ROUTE .STK-MED ONE Stop: 08/07/17 09:31 Sodium Chloride (Saline Flush) 10 ml FLUSH ASDIRECTED PRN PRN Reason: Keep Vein Open Stop: 08/07/17 12:00 Tranexamic Acid (Cyklokapron) Confirm Administered Dose 1,000 mg .ROUTE .STK- MED ONE Stop: 08/07/17 06:31 Last Admin: 08/07/17 08:41 Dose: 1,000 mg Vancomycin HCl (Vancomycin) Confirm Administered Dose 1 gm .ROUTE .STK-MED ONE Stop: 08/07/17 06:31 Last Admin: 08/07/17 08:36 Dose: 1 gm - Exam Quality Assessment: DVT Prophylaxis General: Alert, Oriented, Cooperative, No Acute Distress HEENT: Pupils Equal, EOMI, Mucous Membr. Moist/[place] Neck: Supple Lungs: Clear to Auscultation, Normal Respiratory Effort Cardiovascular: Regular Rate, Regular Rhythm GI/Abdominal Exam: Normal Bowel Sounds, Soft, Non-Tender (Female) Exam: Deferred Extremities: Other (teds/SCD's and ice to knee) Peripheral Pulses: 2+: Dorsalis Pedis (L), Dorsalis Pedis (R) Neurological: No New Focal Deficit Psy/Mental Status: Alert, Normal Affect, Normal Mood Consult PN Assessment/Plan POD#: 1 Procedures: Procedures ASSAY OF FERRITIN (07/25/16) ASSAY OF PREALBUMIN (07/31/17) ASSAY OF SERUM ALBUMIN (07/25/16) ASSAY THYROID STIM HORMONE (11/30/15) CHEST X-RAY 2VW FRONTAL&LATL (12/25/15) COMPLETE CBC AUTOMATED (11/30/15) COMPLETE CBC W/AUTO DIFF WBC (07/31/17) COMPREHEN METABOLIC PANEL (07/31/17) CULTURE SCREEN ONLY (12/25/15) ECHO EXAM OF ABDOMEN (08/08/16) EMERGENCY DEPT VISIT (03/29/15) GAIT TRAINING THERAPY (08/08/16) LIPID PANEL (11/30/15) METABOLIC PANEL TOTAL CA (07/25/16) MR-STAPH DNA AMP PROBE (07/26/17) OFFICE/OUTPATIENT VISIT EST (05/30/16) OT EVAL LOW COMPLEX 30 MIN (08/08/16) PROTHROMBIN TIME (07/31/17) PT EVAL LOW COMPLEX 20 MIN (08/08/16) ROUTINE VENIPUNCTURE (07/31/17) SELF CARE MNGMENT TRAINING (08/08/16) STREP A AG IA (12/25/15) THERAPEUTIC ACTIVITIES (08/08/16) THERAPEUTIC EXERCISES (08/08/16) THROMBOPLASTIN TIME PARTIAL (07/31/17) TTE W/DOPPLER COMPLETE (08/03/17) UPR/LXTR ART STDY 3+ LVLS (01/09/17) URINALYSIS AUTO W/SCOPE (08/08/16) VITAMIN D 25 HYDROXY (07/25/16) X-RAY EXAM CHEST 2 VIEWS (07/31/17) X-RAY EXAM OF KNEE 1 OR 2 (08/08/16) (1) S/P total knee arthroplasty SNOMED Code(s): 8352379434685, 4769206226346 Code(s): Z96.659 - PRESENCE OF UNSPECIFIED ARTIFICIAL KNEE JOINT Priority: High Current Visit: Yes Qualifiers: Laterality: left Qualified Code(s): Z96.652 - Presence of left artificial knee joint (2) Osteoarthritis SNOMED Code(s): 853264512 Code(s): M19.90 - UNSPECIFIED OSTEOARTHRITIS, UNSPECIFIED SITE Priority: High Current Visit: Yes Qualifiers: Osteoarthritis location: knee Osteoarthritis type: primary Laterality: left Qualified Code(s): M17.12 - Unilateral primary osteoarthritis, left knee (3) Arrhythmia SNOMED Code(s): 383407283 Code(s): I49.9 - CARDIAC ARRHYTHMIA, UNSPECIFIED Priority: Low Current Visit: Yes Qualifiers: Arrhythmia type: other cardiac arrhythmia Qualified Code(s): I49.8 - Other specified cardiac arrhythmias (4) Age related osteoporosis SNOMED Code(s): 521448128 Code(s): M81.0 - AGE-RELATED OSTEOPOROSIS W/O CURRENT PATHOLOGICAL FRACTURE Priority: Medium Current Visit: No Qualifiers: Presence of current pathological fracture: unspecified Qualified Code(s): M81.0 - Age-related osteoporosis without current pathological fracture (5) HLD (hyperlipidemia) SNOMED Code(s): 76619518 Code(s): E78.5 - HYPERLIPIDEMIA, UNSPECIFIED Priority: Low Current Visit : No Qualifiers: Hyperlipidemia type: unspecified Qualified Code(s): E78.5 - Hyperlipidemia , unspecified (6) HTN (hypertension) SNOMED Code(s): 77580749 Code(s): I10 - ESSENTIAL (PRIMARY) HYPERTENSION Priority: Low Current Visit: No Qualifiers: Hypertension type: unspecified Qualified Code(s): I10 - Essential (primary ) hypertension (7) Transaminitis SNOMED Code(s): 672502538 Code(s): R74.0 - NONSPEC ELEV OF LEVELS OF TRANSAMNS & LACTIC ACID DEHYDRGNSE Priority: Medium Current Visit: Yes (8) GERD (gastroesophageal reflux disease) SNOMED Code(s): 848517543 Code(s): K21.9 - GASTRO-ESOPHAGEAL REFLUX DISEASE WITHOUT ESOPHAGITIS Priority: Medium Current Visit: No Qualifiers: Esophagitis presence: esophagitis presence not specified Qualified Code(s) : K21.9 - Gastro-esophageal reflux disease without esophagitis (9) Hx of breast cancer SNOMED Code(s): 709050916 Code(s): Z85.3 - PERSONAL HISTORY OF MALIGNANT NEOPLASM OF BREAST Priority : Medium Current Visit: No Problem List Initiated/Reviewed/Updated: Yes Plan: I/P: Acute: S/P left total knee arthroplasty -POD #1 -DVT prophylaxis and pain management per primary care team -PT/OT -IS/RT -Vital signs stable -Monitor labs -Pre-operative Hgb was 14.5-->11.1 Osteoarthritis of left knee -Pain management per primary care team Arrhythmia -Irregular rhythm noted on physical exam -Was having CP post-operatively and 12-lead obtained then - NSR -12-lead EKG shows sinus rhythm with supraventricular bigeminy -Troponin and CKMB negative -Negative chest pain/SOB however she has had some "Heartburn" that comes and goes. Hx/o GERD -Previous 12-leads on 12/25/15 notes a-fib and 07/31/17 shows sinus rhythm with PVC, probable LVH -Echo obtained 08/03/17 shows EF of 60-65% with no LVH. Defer to full report. -F/U with PCP Transaminitis, postoperative and by hx -AST/ALT-- 338 and 381, normal bilirubin and alk phos -No abd symptoms -Recommend f/up with PCP for recheck of LFT's within one week. -As below patient carries hx of breast ca Chronic: Depression GERD -pepcid ordered HTN - home meds osteoperosis HLD hx/o breast cancer Plan: CM for discharge planning---patient is doing well. VSS, labs stable with recommendations for recheck LFT's as OP as above---OK from Hospitalist standpoint for DC home today with family. GI prophylaxis Home medications as indicated Other orders as listed above Routine AM labs She is a full code. Her PCP is GERRI Schulz, here at the [facility].
[2017-08-08] MEDS ORDERED: Citalopram 10 MG Tab PO SCH (09:00)
[2017-08-08] MEDS ORDERED: Aspirin 325 MG Tab.EC PO SCH (09:00)
[2017-08-08] MEDS ORDERED: ESCITALOPRAM 5 MG PO SCH (09:00)
[2017-08-08] MEDS ORDERED: HYDROCHLOROTHIAZIDE PO SCH (09:00)
[2017-08-08] MEDS ORDERED: TRIAMTERENE PO SCH (09:00)
[2017-08-08] MEDS ORDERED: Aspirin 81 MG Tab.EC PO SCH (09:00)
[2017-08-08] MEDS ORDERED: LISINOPRIL 40 MG PO SCH (09:00)
[2017-08-08] MEDS: [UNRECOGNIZED DRUG - OTHER] EYEBOTH SCH ×2 (09:09→14:28)
[2017-08-08] MEDS: Docusate Sodium 100 MG Cap PO SCH (09:17)
[2017-08-08] MEDS: Famotidine 20 MG Tab PO SCH (09:17)
--- NOTE | 2017-08-08 11:27 | PCM.SURGPN ---
- General Info Date of Service: 08/08/17 POD#: 1 Functional Status: Reports: Pain Controlled, Tolerating Diet, Ambulating, Urinating, Incentive Spirometry - Review of Systems Musculoskeletal: Reports: Other (The pt feels prepared for discharge to home. She will have the assistance of her daughters.) - Patient Data Vitals - Most Recent: Last Vital Signs Temp 98.2 F 08/08/17 07:26 Pulse 67 08/08/17 07:26 Resp 14 08/08/17 07:26 BP 140/84 08/08/17 07:26 Pulse Ox 92 L 08/08/17 07:26 Weight - Most Recent: 125 lb 14.143 oz I&O - Last 24 Hours: Intake & Output 08/07/17 08/08/17 08/08/17 22:59 06:59 14:59 Intake Total 120 Output Total 400 200 Balance -280 -200 Lab Results Last 24 Hrs: Laboratory Results - last 24 hr 08/07/17 08/08/17 08/08/17 Range/Units 18:20 06:30 06:30 WBC 4.92 (3.98-10.04) K/mm3 RBC 3.92 L (3.98-5.22) M/mm3 Hgb 11.1 L (11.2-15.7) gm/L Hct 33.5 L (34.1-44.9) % MCV 85.5 (79.4-94.8) fl MCH 28.3 (25.6-32.2) pg MCHC 33.1 (32.2-35.5) g/dl RDW Std Deviation 40.7 (36.4-46.3) fL Plt Count 161 L (182-369) K/mm3 MPV 11.3 (9.4-12.3) fl Sodium 141 (136-145) mEq/L Potassium 3.7 (3.5-5.1) mEq/L Chloride 106 (98-107) mEq/L Carbon Dioxide 27 (21-32) mEq/L Anion Gap 11.7 (5-15) BUN 16 (7-18) mg/dL Creatinine 0.9 (0.55-1.02) mg/dL Est Cr Clr Drug Dosing 41.87 mL/min Estimated GFR (MDRD) 60 (>60) mL/min BUN/Creatinine Ratio 17.8 (14-18) Glucose 97 (83-115) mg/dL Calcium 8.1 L (8.5-10.1) mg/dL Total Bilirubin 0.7 (0.2-1.0) mg/dL AST 338 H (15-37) U/L ALT 389 H (14-59) U/L Alkaline Phosphatase 83 (46-116) U/L CK-MB (CK-2) 1.1 (0-3.6) ng/ml Troponin I < 0.017 (0.00-0.056) ng/mL Total Protein 5.5 L (6.4-8.2) g/dl Albumin 2.9 L (3.4-5.0) g/dl Globulin 2.6 gm/dL Albumin/Globulin Ratio 1.1 (1-2) Med Orders - Current: Current Medications Aspirin (Ecotrin) 325 mg PO BID [facility] Last Admin: 08/08/17 09:10 Dose: 325 mg Aspirin (Halfprin) 81 mg PO DAILY [facility] Last Admin: 08/08/17 09:10 Dose: Not Given Bisacodyl (Dulcolax) 5 mg PO DAILY PRN PRN Reason: Constipation Docusate Sodium (Colace) 100 mg PO BID [facility] Last Admin: 08/08/17 09:17 Dose: 100 mg Famotidine (Pepcid) 20 mg PO BID [facility] Last Admin: 08/08/17 09:17 Dose: 20 mg Hydromorphone HCl (Dilaudid) 0.2 mg IVPUSH Q2H PRN PRN Reason: Breakthrough Pain Magnesium Hydroxide (Milk Of Magnesia) 30 ml PO BID PRN PRN Reason: Constipation Naloxone HCl (Narcan) 0.1 mg IVPUSH Q5M PRN PRN Reason: Oversedation Ondansetron HCl (Zofran) 4 mg IVPUSH Q6H PRN PRN Reason: Nausea/Vomiting Lisinopril 40mg Tablet (Patients Own Med) 1 each PO DAILY [facility] Last Admin: 08/08/17 09:12 Dose: 1 each Ptom: Zylet-E Ophth (Drops) 1 each EYEBOTH QID [facility] Last Admin: 08/08/17 09:09 Dose: Not Given Triamterene W/Hydrochlorothiazide 37.5mg/25mg 1 each PO DAILY [facility] Last Admin: 08/08/17 09:12 Dose: 1 each Escitalopram 5mg Tablet (Patient's Own Med) 1 each PO DAILY [facility] Last Admin: 08/08/17 09:11 Dose: 1 each Scopolamine (Scopolamine) 1 each TRDERM ONETIME [facility] Last Admin: 08/07/17 07:30 Dose: 1 each Senna (Senna) 8.6 mg PO BID PRN PRN Reason: Constipation Tramadol HCl (Ultram) 50 - 100 mg PO Q4H PRN PRN Reason: Pain Last Admin: 08/08/17 06:31 Dose: 100 mg Discontinued Medications Bupivacaine HCl (Marcaine 0.25%) Confirm Administered Dose 30 ml .ROUTE .STK- MED ONE Stop: 08/07/17 06:32 Bupivacaine HCl/Epinephrine Bitart (Marcaine 0.25%/Epinephrine 1:200,000) Confirm Administered Dose 30 ml .ROUTE .STK-MED ONE Stop: 08/07/17 06:31 Last Admin: 08/07/17 08:35 Dose: 30 ml Cefazolin Sodium (Ancef) Confirm Administered Dose 2 gm .ROUTE .STK-MED ONE Stop: 08/07/17 06:31 Last Admin: 08/07/17 08:30 Dose: 2 gm Cefazolin Sodium (Ancef) Confirm Administered Dose 2 gm .ROUTE .STK-MED ONE Stop: 08/07/17 07:18 Citalopram Hydrobromide (Celexa) 10 mg PO DAILY [facility] Morphine Sulfate 8 mg/Epinephrine HCl 0.3 mg/Cefuroxime Sodium 750 mg/Ketorolac Tromethamine 30 mg/Sodium Chloride 27.9 ml 0 mg .XX ONETIME ONE Stop: 08/07/17 07:31 Last Admin: 08/07/17 08:34 Dose: 788.3 mg Dexamethasone (Dexamethasone) Confirm Administered Dose 20 mg .ROUTE .STK-MED ONE Stop: 08/07/17 07:52 Diphenhydramine HCl (Benadryl) Confirm Administered Dose 50 mg .ROUTE .STK-MED ONE Stop: 08/07/17 07:52 Epinephrine HCl (Adrenalin) Confirm Administered Dose 1 mg .ROUTE .STK-MED ONE Stop: 08/07/17 09:31 Famotidine (Pepcid) 20 mg IVPUSH ONETIME ONE Stop: 08/07/17 10:19 Last Admin: 08/07/17 10:36 Dose: 20 mg Fentanyl (Sublimaze) Confirm Administered Dose 100 mcg .ROUTE .STK-MED ONE Stop: 08/07/17 07:18 Fentanyl (Sublimaze) 50 mcg IVPUSH Q5M PRN PRN Reason: PAIN Stop: 08/07/17 12:00 Last Admin: 08/07/17 09:46 Dose: 50 mcg Lactated Ringer's (Ringers, Lactated) 1,000 mls @ 125 mls/hr IV ASDIRECTED [facility] Stop: 08/07/17 23:00 Last Admin: 08/07/17 10:47 Dose: 125 mls/hr Cefazolin Sodium/Dextrose 2 gm (/ Premix) 50 mls @ 100 mls/hr IV Q8H [facility] Stop: 08/08/17 07:29 Last Admin: 08/08/17 07:00 Dose: 100 mls/hr Lactated Ringer's (Ringers, Lactated) Confirm Administered Dose 1,000 mls @ as directed .ROUTE .STK-MED ONE Stop: 08/07/17 07:51 Iodine (Iodine 2% Mild Tincture) Confirm Administered Dose 30 ml .ROUTE .STK- MED ONE Stop: 08/07/17 06:31 Last Admin: 08/07/17 08:27 Dose: 18 ml Ketorolac Tromethamine (Toradol) 15 mg IVPUSH Q6H PRN PRN Reason: Pain Last Admin: 08/08/17 04:20 Dose: 15 mg Ketorolac Tromethamine (Toradol) 30 mg IVPUSH ONETIME PRN PRN Reason: Pain Stop: 08/07/17 12:00 Last Admin: 08/07/17 09:43 Dose: 30 mg Lidocaine/Sodium Bicarbonate (Buffered Lidocaine 1% In Ns 8.4%) 0.25 ml IV ONETIME PRN PRN Reason: Prior to IV Start Lidocaine/Sodium Bicarbonate (Buffered Lidocaine 1% In Ns 8.4%) 0.25 ml .XX ONETIME PRN PRN Reason: Prior to IV Start Stop: 08/07/17 12:00 Last Admin: 08/07/17 07:05 Dose: 0.25 ml Lorazepam (Ativan) 0.5 mg IVPUSH ONETIME ONE Stop: 08/07/17 10:20 Last Admin: 08/07/17 10:29 Dose: 0.5 mg Meperidine HCl (Demerol) 12.5 mg IVPUSH Q15M [facility] Stop: 08/07/17 09:46 Last Admin: 08/07/17 20:13 Dose: Not Given Propofol (Diprivan 20 Ml) Confirm Administered Dose 200 mg .ROUTE .STK-MED ONE Stop: 08/07/17 07:17 Propofol (Diprivan 20 Ml) Confirm Administered Dose 200 mg .ROUTE .STK-MED ONE Stop: 08/07/17 08:04 Ropivacaine (Naropin 0.5%) Confirm Administered Dose 30 ml .ROUTE .STK-MED ONE Stop: 08/07/17 09:31 Sodium Chloride (Saline Flush) 10 ml FLUSH ASDIRECTED PRN PRN Reason: Keep Vein Open Stop: 08/07/17 12:00 Tranexamic Acid (Cyklokapron) Confirm Administered Dose 1,000 mg .ROUTE .STK- MED ONE Stop: 08/07/17 06:31 Last Admin: 08/07/17 08:41 Dose: 1,000 mg Vancomycin HCl (Vancomycin) Confirm Administered Dose 1 gm .ROUTE .STK-MED ONE Stop: 08/07/17 06:31 Last Admin: 08/07/17 08:36 Dose: 1 gm - Exam Wound/Incisions: Dressing Dry and Intact General: Alert, Cooperative, No Acute Distress Lungs: Normal Respiratory Effort Extremities: Other (NVS intact and [place]'s negative.) - Problem List Review Problem List Initiated/Reviewed/Updated: Yes - My Orders Last 24 Hours: Active Orders 24 hr Category Date Time Status Ready for Discharge [RC] PER UNIT ROUTINE Care 08/08/17 09:36 Active Regular Diet [DIET] Diet 08/07/17 Lunch Active Aspirin [Ecotrin] Med 08/08/17 09:00 Active 325 mg PO BID Aspirin [Halfprin] Med 08/08/17 09:00 Active 81 mg PO DAILY Docusate Sodium [Colace] Med 08/07/17 21:00 Active 100 mg PO BID Famotidine [Pepcid] Med 08/07/17 21:00 Active 20 mg PO BID Patient's Own Medication [Ptom] Med 08/07/17 21:00 Active 1 each EYEBOTH QID Patient's Own Medication [Ptom] Med 08/08/17 09:00 Active 1 each PO DAILY Patient's Own Medication [Ptom] Med 08/08/17 09:00 Active 1 each PO DAILY Patient's Own Medication [Ptom] Med 08/08/17 09:00 Active 1 each PO DAILY EKG 12 Lead [EK] Routine Ther 08/07/17 10:32 Ordered Medication Orders Aspirin (Ecotrin) 325 mg PO BID [facility] Last Admin: 08/08/17 09:10 Dose: 325 mg Aspirin (Halfprin) 81 mg PO DAILY [facility] Last Admin: 08/08/17 09:10 Dose: Not Given Bisacodyl (Dulcolax) 5 mg PO DAILY PRN PRN Reason: Constipation Docusate Sodium (Colace) 100 mg PO BID [facility] Last Admin: 08/08/17 09:17 Dose: 100 mg Admin: 08/07/17 20:52 Dose: 100 mg Famotidine (Pepcid) 20 mg PO BID [facility] Last Admin: 08/08/17 09:17 Dose: 20 mg Admin: 08/07/17 20:52 Dose: 20 mg Hydromorphone HCl (Dilaudid) 0.2 mg IVPUSH Q2H PRN PRN Reason: Breakthrough Pain Magnesium Hydroxide (Milk Of Magnesia) 30 ml PO BID PRN PRN Reason: Constipation Naloxone HCl (Narcan) 0.1 mg IVPUSH Q5M PRN PRN Reason: Oversedation Ondansetron HCl (Zofran) 4 mg IVPUSH Q6H PRN PRN Reason: Nausea/Vomiting Lisinopril 40mg Tablet (Patients Own Med) 1 each PO DAILY [facility] Last Admin: 08/08/17 09:12 Dose: 1 each Ptom: Zylet-E Ophth (Drops) 1 each EYEBOTH QID [facility] Last Admin: 08/08/17 09:09 Dose: Not Given Triamterene W/Hydrochlorothiazide 37.5mg/25mg 1 each PO DAILY [facility] Last Admin: 08/08/17 09:12 Dose: 1 each Escitalopram 5mg Tablet (Patient's Own Med) 1 each PO DAILY [facility] Last Admin: 08/08/17 09:11 Dose: 1 each Scopolamine (Scopolamine) 1 each TRDERM ONETIME [facility] Last Admin: 08/07/17 07:30 Dose: 1 each Senna (Senna) 8.6 mg PO BID PRN PRN Reason: Constipation Tramadol HCl (Ultram) 50 - 100 mg PO Q4H PRN PRN Reason: Pain Last Admin: 08/08/17 06:31 Dose: 100 mg - Assessment Assessment (Free Text/Narrative):: POD#1 - left TKA - Plan Plan (Free Text/Narrative):: 1. ASA 325mg PO BID. Frequent mobility, TEDs. 2. Hgb 11.1 today. 3. Further orders per Hospitalist service. 4. Discharge to home today. The pt's case was discussed with Dr. Pedroza.
--- NOTE | 2017-08-08 15:10 | PCM.OPNOTE ---
- General Post-Op/Procedure Note Date of Surgery/Procedure: 08/07/17 Operative Procedure(s): left total knee arthroplasty Pre Op Diagnosis: left knee osteoarthrosis Post-Op Diagnosis: Same Anesthesia Technique: Local, MAC, Spinal Primary Surgeon: Daryl Pedroza Anesthesia Provider: Yordan Hsu Ticker Installer: Vickie Rodarte Ticker Installer: Carol Murphy EBLinda in mLs: 5 Complications: None Condition: Good Free Text/Narrative:: Intake & Output 08/08/17 08/08/17 08/08/17 06:59 14:59 22:59 Output Total 200 Balance -200
--- NOTE | 2017-08-08 16:34 | OR ---
DATE OF OPERATION: 08/07/2017 SURGEON: Daryl Pedroza MD OPERATION PERFORMED: Left total knee arthroplasty. PREOPERATIVE DIAGNOSIS: Left knee osteoarthrosis. POSTOPERATIVE DIAGNOSIS: Left knee osteoarthrosis. ANESTHESIA: Local MAC with spinal. ANESTHESIA PROVIDER: Yordan Hsu CRNA MANUFACTURING QUALITY TECHNICIAN: Vickie Rodarte PA-C, and Carol Murphy LPN. ESTIMATED BLOOD LOSS: 5 mL. COMPLICATIONS: None. CONDITION: Stable. IMPLANTS: 1. Midway size 4 PS femur. 2. Midway size 4 [place] tibial base plate. 3. Tre size 4, 9-mm PS X3 polyethylene. 4. Midway size 27 x 8 mm patella. DESCRIPTION OF PROCEDURE: The patient was identified in the preop holding area. Proper site was marked and identified by the surgeon. The patient was taken back to the operating theater. After adequate anesthesia, the patient's left lower extremity had a nonsterile tourniquet applied and it was then sterilely prepped and draped in the usual sterile fashion. OR timeout was performed. The patient received 2 g IV Ancef. At this time, left lower extremity was exsanguinated. Tourniquet was insufflated to 300 mmHg. Standard medial parapatellar incision was made. Medial parapatellar arthrotomy was created. Deep fibers of the MCL were raised and anterior fat pad was resected. At this time, attention was turned to the patella. Patella measured 20, it was resected to a 13 for a 27 x 8 mm patella. Drill holes were then drilled and found to be in adequate position. The drill was then drilled in the distal femur and the intramedullary distal femoral cutting guide was then placed. 8 mm was resected off the distal femur and was found to be an adequate resection. Sizing guide was placed. It was found to be a size Midway size 4 PS femur that was shown on the implant record at the beginning of this dictation. The drill holes were drilled for the epicondylar axis using [place] line and epicondyles as reference. At this time, the 4-in- 1 cutting block was placed. An anterior posterior and anterior and posterior chamfer cuts were then completed. The correct size box cut was then placed and the box cut was completed and found to be an adequate resection. Attention was turned to the tibia. The posterior medial lateral retractors were placed. The extramedullary tibial guide was placed. It was placed in the old footprint of the ACL. It was aligned with the center of the ankle and 0 degrees of slope, 9 mm was then resected off the unaffected lateral side. There was found to be an acceptable reduction. At this time, posterior osteophytes were removed along with medial and lateral meniscus. A trial implant was placed with a correct sized tibia that was mentioned at the beginning of the dictation. A Midway size 4, 9-mm PS X3 polyethylene was then placed. The patient's knee was brought through range of motion. The patella was tracking centrally and was stable to varus and valgus stress. Alignment was found to be roughly at 0 degrees. At this time, cement was mixed on the back table. The tibia was stamped and drilled in proper rotation. All cut surfaces were irrigated with pulse lavage irrigation with Ancef and then completely dried. Once this was completed, then the cement was ready. The universal tibial base plate was cemented in place. Next, the Midway size 4 PS femur cemented into place and the Midway size 4, 9- mm PS X3 polyethylene was placed. The patient's knee was brought into full extension. Excess cement was removed. The patella was then cemented in place at this time. Tourniquet was deflated. One liter dilute Betadine solution was irrigated through the knee along with 3 L of pulse lavage irrigation with Ancef. Periarticular injection was then completed. The patient's knee was brought through a range of motion. Once the cement had time to set up and it was found to be stable to varus valgus stress, the patella was tracking centrally with full range of motion. At this time, a #2 barbed suture was used for closure of the medial parapatellar arthrotomy. Topical tranexamic acid was placed. 2-0 Vicryl was used subcutaneously, a running 3-0 Monocryl was used subcuticularly. The patient tolerated the procedure well and was sent to the PACU in stable condition. MMODAL /[id number]
--- NOTE | 2017-08-10 09:43 | PCM.DCSUM1 ---
Discharge Summary - Hospital Course Brief History: Liberty is an 86 yo female who underwent left TKA with Dr. Pedroza on 08-07-2017. The procedure was completed under spinal anesthesia with MAC. The pt tolerated the procedure well and was admitted to the [facility] under Medical-Surgical status. The pt received Ancef tameka-operatively. She participated in P.T. and O.T. and progressed well. She was allowed to WBAT and used a FWW for mobility. The pt's surgical wound remained was dressed with a Mepilex dressing and remained clean and dry. On POD#1, the pt was started on 325mg ASA BID for VTE prophylaxis. TEDs and SCDs were also ordered. On POD#1, the pt's hemoglobin was 11.1. Medial management was provided by the Hospitalist service and the pt's hospital course was uneventful. On POD#1, the pt was deemed appropriate for discharge to home with her family. - Discharge Data Discharge Date: 08/08/17 Discharge Disposition: Home, Self-Care 01 Condition: Good - Patient Summary/Data Operative Procedure(s) Performed: left total knee arthroplasty Consults: Consultations 08/07/17 06:37 Consult to Physician [CONS] Routine OT Evaluation and Treatment [CONS] Routine PT Evaluation and Treatment [CONS] Routine - Patient Instructions Diet: Usual Diet as Tolerated Activity: Apply Ice, As Tolerated, Elevate Extremity, Full Weight Bearing Driving: Do Not Drive Showering/Bathing: May Shower Wound/Incision Care: Keep Operative Site/Wound Site Clean and Dry, Do NOT Change Dressing Notify Provider of: Fever, Increased Pain, Swelling and Redness, Drainage, Nausea and/or Vomiting Other/Special Instructions: Please get up and moving around every hour while awake. This helps to prevent blood clots. Please take 325mg aspirin twice daily - this also helps to prevent blood clots. The medication is being used for blood clot prevention and not for pain control, so please use the medication twice daily as directed. Please wear the RAFAEL hose during the day and you may remove them at night. Please schedule for P.T. Complete the P.T. exercises and stretches that were instructed in the Hospital. Please use the pain medication and muscle relaxant as needed. The medication may cause drowsiness and/or constipation. You could use a stool softener like docusate sodium or Colace 100mg twice daily and/or a laxative like Miralax daily for constipation. Contact your primary care provider for further instructions if you are constipated. Please schedule an appointment with your primary care provider for 'routine post-op care'. Use the incentive spirometer often. Please place ice to the knee often. Please elevate the limb to decrease swelling. Keep the Mepilex dressing in place until follow-up. Please call [phone] with questions or concerns. - Discharge Plan Prescriptions/Med Rec: Aspirin [Ecotrin] 325 mg PO BID #84 tab.ec Docusate Sodium [Colace] 100 mg PO BID #60 cap Famotidine [Pepcid] 20 mg PO BID #60 tablet traMADol [Ultram] 50 - 100 mg PO Q4H PRN #60 tablet PRN Reason: Pain Home Medications: Home Meds Aspirin [Halfprin] 81 mg PO DAILY 03/29/15 [History] Lisinopril 40 mg PO DAILY 03/29/15 [History] Triamterene/Hydrochlorothiazid [Triamterene-HCTZ 37.5-25 MG] 1 tab PO DAILY 01/05 [History] Fluticasone Propionate [Flonase] 1 spray NASBOTH BID PRN 08/05/16 [History] Acetaminophen [Tylenol] 650 mg PO Q6H PRN 08/04/17 [History] Denosumab [Prolia] 1 dose SQ ASDIRECTED 08/04/17 [History] Diclofenac Sodium [Voltaren] 1 applic TOP QID 08/04/17 [History] Escitalopram [Lexapro] 5 mg PO DAILY 08/04/17 [History] Tobramycin/Lotepred Etab [Zylet Eye Drops] 1 drop EYEBOTH QID 08/04/17 [History] Aspirin [Ecotrin] 325 mg PO BID #84 tab.ec 08/08/17 [Rx] Docusate Sodium [Colace] 100 mg PO BID #60 cap 08/08/17 [Rx] Famotidine [Pepcid] 20 mg PO BID #60 tablet 08/08/17 [Rx] traMADol [Ultram] 50 - 100 mg PO Q4H PRN #60 tablet 08/08/17 [Rx] Patient Handouts: Total Knee Replacement, Care After, [id number] Referrals: LaVickie ramos PA-C [Physician Scale Mechanic] - - Patient Data Vitals - Most Recent: Last Vital Signs Temp 98.2 F 08/08/17 07:26 Pulse 67 08/08/17 07:26 Resp 14 08/08/17 07:26 BP 140/84 18 07:26 Pulse Ox 92 L 08/08/17 07:26 Weight - Most Recent: 125 lb 14.143 oz Med Orders - Current: Current Medications Discontinued Medications Aspirin (Ecotrin) 325 mg PO BID [facility] Last Admin: 08/08/17 09:10 Dose: 325 mg Aspirin (Halfprin) 81 mg PO DAILY [facility] Last Admin: 08/08/17 09:10 Dose: Not Given Bisacodyl (Dulcolax) 5 mg PO DAILY PRN PRN Reason: Constipation Bupivacaine HCl (Marcaine 0.25%) Confirm Administered Dose 30 ml .ROUTE .STK- MED ONE Stop: 08/07/17 06:32 Bupivacaine HCl/Epinephrine Bitart (Marcaine 0.25%/Epinephrine 1:200,000) Confirm Administered Dose 30 ml .ROUTE .STK-MED ONE Stop: 08/07/17 06:31 Last Admin: 08/07/17 08:35 Dose: 30 ml Cefazolin Sodium (Ancef) Confirm Administered Dose 2 gm .ROUTE .STK-MED ONE Stop: 08/07/17 06:31 Last Admin: 08/07/17 08:30 Dose: 2 gm Cefazolin Sodium (Ancef) Confirm Administered Dose 2 gm .ROUTE .STK-MED ONE Stop: 08/07/17 07:18 Citalopram Hydrobromide (Celexa) 10 mg PO DAILY [facility] Morphine Sulfate 8 mg/Epinephrine HCl 0.3 mg/Cefuroxime Sodium 750 mg/Ketorolac Tromethamine 30 mg/Sodium Chloride 27.9 ml 0 mg .XX ONETIME ONE Stop: 08/07/17 07:31 Last Admin: 08/07/17 08:34 Dose: 788.3 mg Dexamethasone (Dexamethasone) Confirm Administered Dose 20 mg .ROUTE .STK-MED ONE Stop: 08/07/17 07:52 Diphenhydramine HCl (Benadryl) Confirm Administered Dose 50 mg .ROUTE .STK-MED ONE Stop: 08/07/17 07:52 Docusate Sodium (Colace) 100 mg PO BID [facility] Last Admin: 08/08/17 09:17 Dose: 100 mg Epinephrine HCl (Adrenalin) Confirm Administered Dose 1 mg .ROUTE .STK-MED ONE Stop: 08/07/17 09:31 Famotidine (Pepcid) 20 mg PO BID [facility] Last Admin: 08/08/17 09:17 Dose: 20 mg Famotidine (Pepcid) 20 mg IVPUSH ONETIME ONE Stop: 08/07/17 10:19 Last Admin: 08/07/17 10:36 Dose: 20 mg Fentanyl (Sublimaze) Confirm Administered Dose 100 mcg .ROUTE .STK-MED ONE Stop: 08/07/17 07:18 Fentanyl (Sublimaze) 50 mcg IVPUSH Q5M PRN PRN Reason: PAIN Stop: 08/07/17 12:00 Last Admin: 08/07/17 09:46 Dose: 50 mcg Hydromorphone HCl (Dilaudid) 0.2 mg IVPUSH Q2H PRN PRN Reason: Breakthrough Pain Lactated Ringer's (Ringers, Lactated) 1,000 mls @ 125 mls/hr IV ASDIRECTED [facility] Stop: 08/07/17 23:00 Last Admin: 08/07/17 10:47 Dose: 125 mls/hr Cefazolin Sodium/Dextrose 2 gm (/ Premix) 50 mls @ 100 mls/hr IV Q8H [facility] Stop: 08/08/17 07:29 Last Admin: 08/08/17 07:00 Dose: 100 mls/hr Lactated Ringer's (Ringers, Lactated) Confirm Administered Dose 1,000 mls @ as directed .ROUTE .STK-MED ONE Stop: 08/07/17 07:51 Iodine (Iodine 2% Mild Tincture) Confirm Administered Dose 30 ml .ROUTE .STK- MED ONE Stop: 08/07/17 06:31 Last Admin: 08/07/17 08:27 Dose: 18 ml Ketorolac Tromethamine (Toradol) 15 mg IVPUSH Q6H PRN PRN Reason: Pain Last Admin: 08/08/17 04:20 Dose: 15 mg Ketorolac Tromethamine (Toradol) 30 mg IVPUSH ONETIME PRN PRN Reason: Pain Stop: 08/07/17 12:00 Last Admin: 08/07/17 09:43 Dose: 30 mg Lidocaine/Sodium Bicarbonate (Buffered Lidocaine 1% In Ns 8.4%) 0.25 ml IV ONETIME PRN PRN Reason: Prior to IV Start Lidocaine/Sodium Bicarbonate (Buffered Lidocaine 1% In Ns 8.4%) 0.25 ml .XX ONETIME PRN PRN Reason: Prior to IV Start Stop: 08/07/17 12:00 Last Admin: 08/07/17 07:05 Dose: 0.25 ml Lorazepam (Ativan) 0.5 mg IVPUSH ONETIME ONE Stop: 08/07/17 10:20 Last Admin: 08/07/17 10:29 Dose: 0.5 mg Magnesium Hydroxide (Milk Of Magnesia) 30 ml PO BID PRN PRN Reason: Constipation Meperidine HCl (Demerol) 12.5 mg IVPUSH Q15M [facility] Stop: 08/07/17 09:46 Last Admin: 08/07/17 20:13 Dose: Not Given Naloxone HCl (Narcan) 0.1 mg IVPUSH Q5M PRN PRN Reason: Oversedation Ondansetron HCl (Zofran) 4 mg IVPUSH Q6H PRN PRN Reason: Nausea/Vomiting Lisinopril 40mg Tablet (Patients Own Med) 1 each PO DAILY [facility] Last Admin: 08/08/17 09:12 Dose: 1 each Ptom: Zylet-E Ophth (Drops) 1 each EYEBOTH QID [facility] Last Admin: 08/08/17 14:28 Dose: Not Given Triamterene W/Hydrochlorothiazide 37.5mg/25mg 1 each PO DAILY [facility] Last Admin: 08/08/17 09:12 Dose: 1 each Escitalopram 5mg Tablet (Patient's Own Med) 1 each PO DAILY [facility] Last Admin: 08/08/17 09:11 Dose: 1 each Propofol (Diprivan 20 Ml) Confirm Administered Dose 200 mg .ROUTE .STK-MED ONE Stop: 08/07/17 07:17 Propofol (Diprivan 20 Ml) Confirm Administered Dose 200 mg .ROUTE .STK-MED ONE Stop: 08/07/17 08:04 Ropivacaine (Naropin 0.5%) Confirm Administered Dose 30 ml .ROUTE .STK-MED ONE Stop: 08/07/17 09:31 Scopolamine (Scopolamine) 1 each TRDERM ONETIME [facility] Last Admin: 08/07/17 07:30 Dose: 1 each Senna (Senna) 8.6 mg PO BID PRN PRN Reason: Constipation Sodium Chloride (Saline Flush) 10 ml FLUSH ASDIRECTED PRN PRN Reason: Keep Vein Open Stop: 08/07/17 12:00 Tramadol HCl (Ultram) 50 - 100 mg PO Q4H PRN PRN Reason: Pain Last Admin: 08/08/17 14:30 Dose: 100 mg Tranexamic Acid (Cyklokapron) Confirm Administered Dose 1,000 mg .ROUTE .STK- MED ONE Stop: 08/07/17 06:31 Last Admin: 08/07/17 08:41 Dose: 1,000 mg Vancomycin HCl (Vancomycin) Confirm Administered Dose 1 gm .ROUTE .STK-MED ONE Stop: 08/07/17 06:31 Last Admin: 08/07/17 08:36 Dose: 1 gm *Q Meaningful Use (DIS) - VTE *Q VTE Criteria *Q: - Stroke *Q Stroke Criteria *Q: - AMI *Q AMI Criteria *Q:
== END 2017-08-08 15:00 | disposition home or self-care (01) ==
LOC: JD.SDS 05:59 → JD.OB 10:19 → JD.SDS 08-08 15:00
PROVIDERS: ATTEND Orthopaedic Surgery
DX: M17.12 Unilateral primary osteoarthritis, left knee (principal); J30.9 Allergic rhinitis, unspecified; R79.89 Other specified abnormal findings of blood chemistry; K21.9 Gastro-esophageal reflux disease without esophagitis; I10 Essential (primary) hypertension; E78.5 Hyperlipidemia, unspecified; F32.89 Other specified depressive episodes; R74.0 Nonspecific elevation of levels of transaminase and lactic acid dehydrogenase [LDH]; I49.8 Other specified cardiac arrhythmias; M81.0 Age-related osteoporosis without current pathological fracture; Z88.8 Allergy status to other drugs, medicaments and biological substances; Z88.5 Allergy status to narcotic agent; Z79.899 Other long term (current) drug therapy; Z79.82 Long term (current) use of aspirin; Z85.3 Personal history of malignant neoplasm of breast; Z90.89 Acquired absence of other organs; Z90.722 Acquired absence of ovaries, bilateral; Z90.710 Acquired absence of both cervix and uterus; Z90.11 Acquired absence of right breast and nipple; Z79.51 Long term (current) use of inhaled steroids; Z96.651 Presence of right artificial knee joint; Z87.891 Personal history of nicotine dependence
CPT/HCPCS: 27447; 36415; 64447; 73560; 80053; 82553; 84484; 85027; 93005; 97110; 97116; 97161; 97165; 97530; 97535; A9270; J0171; J0690; J0697; J1100; J1200; J1885; J2060; J2270; J2795; J3010; J3370; J3490; J7120; 01402; 64450; C1713; C1776; J2704

== ENCOUNTER 2018-03-22 07:57 | Day surgery (SDC) | payer MEDICARE, OTHER ==
[2018-03-22] MEDS ORDERED: Lactated Ringers 1,000 ML IV SCH (09:00)
[2018-03-22] MEDS ORDERED: Lidocaine 1%/Sod Bicarbonate in NS 8.4% 1 ML Syringe IDERM PRN (09:00)
[2018-03-22] MEDS ORDERED: Sodium Chloride 0.9% 10 ML Syringe FLUSH PRN (09:00)
--- NOTE | 2018-03-22 09:58 | PCM.PREANE ---
Preanesthetic Assessment - Anesthesia/Transfusion/Family Hx Anesthesia History: Prior Anesthesia Reaction (nausea) Family History of Anesthesia Reaction: No Transfusion History: No Prior Transfusion(s) Intubation History: Unknown - Review of Systems General: No Symptoms Pulmonary: No Symptoms (quit smoking 58 yrs ago/) Cardiovascular: No Symptoms (History of HTN) Gastrointestinal: No Symptoms (right mastectomy with history of breast cancer./ History of GERD) Neurological: No Symptoms (History of Polycyalgia rheumatica) Other: Reports: Easy Bleeding, Easy Bruising, Liver Problems (History of elevated LFT's), Sinus Problem (seasonal allergies), Depression, Anxiety - Physical Assessment NPO Status Date: 03/21/18 NPO Status Time: 19:30 Pulse: 58 O2 Sat by Pulse Oximetry: 97 Respiratory Rate: 17 Blood Pressure: 140/61 Temperature: 36.2 C Vital Signs: Last Vital Signs Temp 36.2 C 03/22/18 08:10 Pulse 58 L 03/22/18 08:10 Resp 17 03/22/18 08:10 BP 140/61 03/22/18 08:10 Pulse Ox 97 03/22/18 08:10 Height: 1.65 m Weight: 56.2 kg ASA Class: 2 Mental Status: Alert & Oriented x3 Airway Class: Mallampati = 2 Dentition: Reports: Normal Dentition, Partial, Caries Thyro-Mental Finger Breadths: 3 Mouth Opening Finger Breadths: 3 ROM/Head Extension: Full Lungs: Clear to Auscultation, Normal Respiratory Effort Cardiovascular: Regular Rate, Regular Rhythm, No Murmurs - Lab Values: MRSA screen negative in the past. All lab values reviewed and noted and within acceptable ranges to proceed with scheduled procedure. - Imaging/EKG Impressions: EKG: (08/07/2017) SR rate=59, with supraventricular bigeminy noted. - Allergies Allergies/Adverse Reactions: Allergies Allergy/AdvReac Type Severity Reaction Status Date / Time adhesive Allergy Cannot Verified 03/22/18 09:19 Remember atorvastatin Allergy Cannot Verified 03/22/18 09:19 Remember codeine Allergy Rash Verified 03/22/18 09:19 risedronate sodium Allergy Cannot Verified 03/22/18 09:19 [From Actonel] Remember cyclobenzaprine AdvReac Confusion Verified 03/22/18 09:19 [From Flexeril] morphine AdvReac Nausea Verified 03/22/18 09:19 - Anesthesia Plan Pre-Op Medication Ordered: None - Acknowledgements Anesthesia Type Planned: MAC Pt an Appropriate Candidate for the Planned Anesthesia: Yes Alternatives and Risks of Anesthesia Discussed w Pt/Guardian: Yes Pt/Guardian Understands and Agrees with Anesthesia Plan: Yes PreAnesthesia Questionnaire HEENT History: Reports: Impaired Vision, Other (See Below) Other HEENT History: Seasonal Allergies; TMJ Cardiovascular History: Reports: High Cholesterol Other Cardiovascular History: varicose veins Respiratory History: Reports: None Gastrointestinal History: Reports: Hemorrhoids Other Gastrointestinal History: elevated LFTs, small bowel obstruction Genitourinary History: Reports: Other (See Below) Other Genitourinary History: left renal cyst GLOBAL SALES DIRECTOR History: Reports: Other OB/BYN History: Hysteroscopy, Oophorectomy Musculoskeletal History: Reports: Osteoporosis Other Musculoskeletal History: menscus tear right knee Neurological History: Reports: Headaches, Chronic Psychiatric History: Reports: Depression Endocrine/Metabolic History: Reports: None Hematologic History: Reports: None Oncologic (Cancer) History: Reports: Breast Dermatologic History: Reports: None - Infectious Disease History Infectious Disease History: Reports: Chicken Pox, Measles, Mumps, Shingles - Past Surgical History HEENT Surgical History: Reports: Tonsillectomy Cardiovascular Surgical History: Reports: None GI Surgical History: Reports: Cholecystectomy, Colon, Other (See Below) Other GI Surgeries/Procedures: Small Bowel Resection Female Surgical History: Reports: Other (See Below) Other Female Surgeries/Procedures: Left Renal Cyst Musculoskeletal Surgical History: Reports: Knee Replacement Other Musculoskeletal Surgeries/Procedures:: Bilateral Knee Replacements Oncologic Surgical History: Reports: Mastectomy - HOME MEDS Home Medications: Home Meds Aspirin [Halfprin] 81 mg PO DAILY 03/29/15 [History] Lisinopril 40 mg PO DAILY 03/29/15 [History] Triamterene/Hydrochlorothiazid [Triamterene-HCTZ 37.5-25 MG] 1 tab PO DAILY 01/05 [History] Fluticasone Propionate [Flonase] 1 spray NASBOTH BID PRN 08/05/16 [History] Acetaminophen [Tylenol] 650 mg PO Q6H PRN 08/04/17 [History] Denosumab [Prolia] 1 dose SQ ASDIRECTED 08/04/17 [History] Diclofenac Sodium [Voltaren] 1 applic TOP QID 08/04/17 [History] Escitalopram [Lexapro] 5 mg PO DAILY 08/04/17 [History] Tobramycin/Lotepred Etab [Zylet Eye Drops] 1 drop EYEBOTH QID 08/04/17 [History] Aspirin [Ecotrin] 325 mg PO BID #84 tab.ec 08/08/17 [Rx] Docusate Sodium [Colace] 100 mg PO BID #60 cap 08/08/17 [Rx] Famotidine [Pepcid] 20 mg PO BID #60 tablet 08/08/17 [Rx] traMADol [Ultram] 50 - 100 mg PO Q4H PRN #60 tablet 08/08/17 [Rx] - CURRENT (IN HOUSE) MEDS Current Meds: Current Medications Lactated Ringer's (Ringers, Lactated) 1,000 mls @ 125 mls/hr IV ASDIRECTED [facility] Stop: 03/22/18 23:00 Last Admin: 03/22/18 08:30 Dose: 125 mls/hr Lidocaine/Sodium Bicarbonate (Buffered Lidocaine 1% In Ns 8.4%) 0.25 ml IDERM ONETIME PRN PRN Reason: Prior to IV Start Stop: 03/22/18 18:00 Last Admin: 03/22/18 08:29 Dose: 0.25 ml Sodium Chloride (Saline Flush) 10 ml FLUSH ASDIRECTED PRN PRN Reason: Keep Vein Open Stop: 03/22/18 18:00
[2018-03-22] MEDS ORDERED: fentaNYL 100 MCG/2 ML SDV ONE (10:18)
[2018-03-22] MEDS ORDERED: Lidocaine 1% 6 ML ONE (10:18)
[2018-03-22] MEDS ORDERED: Propofol 200 MG/20 ML SDV ONE (10:18)
[2018-03-22] MEDS ORDERED: Ondansetron 4 MG/2 ML SDV ONE (10:35)
[2018-03-22] MEDS ORDERED: Lidocaine 1% with EPINEPHrine 1:100,000 20 ML MDV ONE (10:54)
[2018-03-22] MEDS ORDERED: Bupivacaine 0.5% 30 ML SDV ONE (10:54)
[2018-03-22] MEDS ORDERED: Lactated Ringers 1,000 ML ONE (11:23)
[2018-03-22] MEDS ORDERED: Ondansetron 4 MG/2 ML SDV IVPUSH PRN (11:29)
[2018-03-22] MEDS ORDERED: diphenhydrAMINE 50 MG/ML SDV IVPUSH PRN (11:29)
--- NOTE | 2018-03-22 12:32 | PCM48HPAN ---
Post Anesthesia Note - EVALUATION WITHIN 48HRS OF ANESTHETIC Vital Signs in Normal Range: Yes Patient Participated in Evaluation: Yes Respiratory Function Stable: Yes Airway Patent: Yes Cardiovascular Function Stable: Yes Hydration Status Stable: Yes Pain Control Satisfactory: Yes Nausea and Vomiting Control Satisfactory: Yes Mental Status Recovered: Yes Pulse Rate: 58 SaO2: 99 Resp Rate: 17 Temperature: 36.2 C Blood Pressure: 140/61 Pulse Rate: 62
--- NOTE | 2018-03-22 12:37 | PCM.OPNOTE ---
- General Post-Op/Procedure Note Date of Surgery/Procedure: 03/22/18 Operative Procedure(s): RIGHT superficial temporal artery biopsy Findings: 2 cm segment of in vivo superficial temporal artery was excised Pre Op Diagnosis: rule out temporal arteritis Post-Op Diagnosis: rule out temporal arteritis [place] [facility] [place]geon: Forrest Gooden Anesthesia Provider: Terra Camarena Pathology: RIGHT superficial temporal artery Fluid Replacement, Intraop: 700 (crystalloid) EBL in mLs: 2 Complications: None Condition: Good Free Text/Narrative:: Indications for surgery: The patient is a 87 yo female, h/o polymyalgia rheumatica, who presented with RIGHT-sided headache, eye pain, and visual changes. Due to the concern for temporal arteritis, she was consented for a RIGHT temporal artery biopsy. Indications, risks, and benefits were discussed with the patient in detail. Description of procedure: After surgical consent was verified, the patient was brought to the main OR. The patient was placed prone, and anesthesia performed monitored anesthesia care. The surgical site was prepped and draped in a sterile fashion. Using ultrasound guidance and also by digital palpation, the RIGHT superficial temporal artery was identified. Local anesthetic was injected at the site. A 3 cm skin incision was made overlying the artery. Dissection was carried down through the subcutaneous tissue and superficial temporal fascia. The artery and its branches were identified. A 2 cm in vivo segment of the artery was excised, with the ends tied using 3-0 silk sutures x2 for each cut end. Hemostasis was ensured. The skin was closed in multiple layers using 3-0 Vicryl, and 4-0 Monocryl. The skin was then sealed with Dermabond. The patient tolerated the procedure well and was transported to the PACU in stable condition. At the end of the case, all needle, instrument, and gauze counts were correct. I was present and scrubbed for the entirety of the case. Forrest Gooden M.D., F.A.C.S. General Surgery Pager: [phone]
[2018-03-22 13:46] VITALS: BP 129/83
== END 2018-03-22 13:40 | disposition home or self-care (01) ==
LOC: JD.SDS 07:57
PROVIDERS: ATTEND Student in an Organized Health Care Education/Training Program
DX: R51 Headache (principal); H57.11 Ocular pain, right eye; H53.9 Unspecified visual disturbance; M35.3 Polymyalgia rheumatica; K21.9 Gastro-esophageal reflux disease without esophagitis; F32.9 Major depressive disorder, single episode, unspecified; F41.9 Anxiety disorder, unspecified; E78.00 Pure hypercholesterolemia, unspecified; M81.0 Age-related osteoporosis without current pathological fracture; Z87.891 Personal history of nicotine dependence; Z79.82 Long term (current) use of aspirin; Z79.52 Long term (current) use of systemic steroids; Z79.899 Other long term (current) drug therapy; Z88.5 Allergy status to narcotic agent; Z88.8 Allergy status to other drugs, medicaments and biological substances; Z91.048 Other nonmedicinal substance allergy status
CPT/HCPCS: 37609; J2405; J2704; J3010; J3490; J7120; J2001

== ENCOUNTER 2022-03-10 10:49 | Day surgery (SDC) | payer MEDICARE, OTHER ==
[~2022-03-10 10:49] MED LIST changes: +Cefuroxime 10 MG/ML SYRINGE EYELF SCH; +Lidocaine 1% PF 2 ML SDV INJECT SCH; -Lidocaine 1%/Sod Bicarbonate in NS 8.4% 1 ML Syringe IV PRN; +Pilocarpine 4% Ophth Soln 15 ML Bot EYELF SCH; -Sodium Chloride 0.9% 10 ML Syringe FLUSH PRN
[2022-03-10] MEDS: Polymyxin B/Trimethoprim 10 ML Bottle EYELF SCH ×3 (11:13→12:51)
[2022-03-10] MEDS: Brimonidine 0.2% Ophth Soln 5 ML Bottle EYELF SCH ×3 (11:18→12:51)
[2022-03-10] MEDS: Phenylephrine 2.5% Ophth Soln 2 ML Bot EYELF SCH ×5 (11:22→12:30)
[2022-03-10] MEDS: Tropicamide 1% Ophth Soln 15 ML Bottle EYELF SCH ×4 (11:26→12:08)
[2022-03-10] MEDS: Tetracaine HCl/PF 0.5% 4 ML Bottle EYEBOTH SCH ×4 (12:14→12:31)
[2022-03-10 13:35] VITALS: BP 157/86; PULSE 55
== END 2022-03-10 13:00 | disposition home or self-care (01) ==
LOC: JD.SDS 10:49
PROVIDERS: ATTEND Ophthalmology
DX: H25.813 Combined forms of age-related cataract, bilateral (principal); H16.103 Unspecified superficial keratitis, bilateral; H16.223 Keratoconjunctivitis sicca, not specified as Sjogren's, bilateral; H34.231 Retinal artery branch occlusion, right eye; M31.5 Giant cell arteritis with polymyalgia rheumatica; H40.1131 Primary open-angle glaucoma, bilateral, mild stage; I10 Essential (primary) hypertension; K21.9 Gastro-esophageal reflux disease without esophagitis; E78.00 Pure hypercholesterolemia, unspecified; F32.A Depression, unspecified; Z88.8 Allergy status to other drugs, medicaments and biological substances; Z88.5 Allergy status to narcotic agent; Z88.1 Allergy status to other antibiotic agents; Z88.6 Allergy status to analgesic agent; Z88.2 Allergy status to sulfonamides; M81.0 Age-related osteoporosis without current pathological fracture; Z87.891 Personal history of nicotine dependence; Z90.710 Acquired absence of both cervix and uterus; Z90.49 Acquired absence of other specified parts of digestive tract; Z98.890 Other specified postprocedural states; Z79.82 Long term (current) use of aspirin; Z79.899 Other long term (current) drug therapy; Z79.2 Long term (current) use of antibiotics; Z96.653 Presence of artificial knee joint, bilateral
CPT/HCPCS: 66984; J0697; C1780

== ENCOUNTER 2022-04-14 10:49 | Day surgery (SDC) | payer MEDICARE, OTHER ==
[2022-04-14] MEDS: Polymyxin B/Trimethoprim 10 ML Bottle EYELF SCH ×4 (11:17→12:54)
[2022-04-14] MEDS: Brimonidine 0.2% Ophth Soln 5 ML Bottle EYELF SCH ×4 (11:22→12:54)
[2022-04-14] MEDS: Phenylephrine 2.5% Ophth Soln 2 ML Bot EYELF SCH ×6 (11:27→12:34)
[2022-04-14] MEDS: Tropicamide 1% Ophth Soln 15 ML Bottle EYELF SCH ×4 (11:32→12:13)
[2022-04-14] MEDS: Tetracaine HCl/PF 0.5% 4 ML Bottle EYEBOTH SCH ×4 (12:21→12:42)
[2022-04-14] MEDS: Lidocaine 1% PF 2 ML SDV INJECT SCH ×2 (12:22→12:43)
[2022-04-14] MEDS: Cefuroxime 10 MG/ML SYRINGE EYELF SCH ×2 (12:23→12:53)
[2022-04-14] MEDS: Pilocarpine 4% Ophth Soln 15 ML Bot EYELF SCH ×2 (12:23→12:54)
[2022-04-14 13:22] VITALS: BP 128/67; PULSE 56
== END 2022-04-14 13:00 ==
LOC: JD.SDS 10:49
PROVIDERS: ATTEND Ophthalmology
DX: H25.811 Combined forms of age-related cataract, right eye (principal); I10 Essential (primary) hypertension; E78.00 Pure hypercholesterolemia, unspecified; K21.9 Gastro-esophageal reflux disease without esophagitis; M81.0 Age-related osteoporosis without current pathological fracture; Z98.890 Other specified postprocedural states; Z88.5 Allergy status to narcotic agent; Z88.8 Allergy status to other drugs, medicaments and biological substances
CPT/HCPCS: 66984; C1780; J0697